=== PATIENT | male | born 1970 | race Two or more races ===

== ENCOUNTER 2022-05-08 08:53 | Emergency (ER) | payer OTHER ==
[~2022-05-08] VITALS: Ht 177.8 cm; Wt 122.5 kg
[2022-05-08] MEDS ORDERED: AVAPRO300 MG PO (09:07)
== END 2022-05-08 11:53 | disposition home or self-care (01) ==
LOC: ER 08:53
DX: K60.0 Acute anal fissure (principal); I10 Essential (primary) hypertension

== ENCOUNTER 2022-10-24 07:09 | Day surgery (SDC) | payer OTHER ==
[~2022-10-24] VITALS: Ht 177.8 cm; Wt 113.4 kg
[~2022-10-24 07:09] MED LIST: AVAPRO300 MG PO; VALSARTAN-HCTZ1 EAC3 PO
== END 2022-10-24 15:35 | disposition home or self-care (01) ==
LOC: CIR.AMB 07:09
PROVIDERS: ATTEND Colon & Rectal Surgery
DX: K64.2 Third degree hemorrhoids (principal); K62.0 Anal polyp; K64.8 Other hemorrhoids; K64.4 Residual hemorrhoidal skin tags; K92.1 Melena; Z20.822 Contact with and (suspected) exposure to COVID-19; I10 Essential (primary) hypertension